=== PATIENT | female | born 1965 | race Caucasian/White ===

== ENCOUNTER 2022-01-05 10:15 | Inpatient (IN) | payer MEDICARE, MEDICAID ==
[2021-12-30 12:58] LABS: CLARITY,URINE SLIGHTLY CLOUDY (Clear); COLOR,URINE YELLOW (Yellow); GLUCOSE, URINE NEGATIVE (Neg); KETONES,URINE NEGATIVE (Neg); LEUKOCYTE ESTERASE ,URINE NEGATIVE (Neg); NITRITES, URINE NEGATIVE (Neg); OCCULT BLOOD,URINE NEGATIVE (Neg); PROTEIN,URINE NEGATIVE (Neg)
[2021-12-30 13:04] LABS: BASOPHILS % (AUTO) 0.8 % (0-1); EOSINOPHILS # (AUTO) 0.3 X10'3 (0-0.9); EOSINOPHILS % (AUTO) 6.3 % (0-6); LYMPHOCYTES # (AUTO) 1.8 X10'3 (1.1-4.8); LYMPHOCYTES % (AUTO) 31.6 % (21-51); MEAN CORPUSCULAR HEMOGLOBIN 29.8 PG (27.0-31.0); MEAN CORPUSCULAR HGB CONC 33.5 g/dL (33.0-36.5); MEAN CORPUSCULAR VOLUME 88.8 FL (78-98); MEAN PLATELET VOLUME 7.7 FL (7.4-10.4); MONOCYTES # (AUTO) 0.4 X10'3 (0-0.9); MONOCYTES % (AUTO) 7.4 % (2-12); NEUTROPHILS % (AUTO) 53.9 % (42-75); PRE OP HEMOGLOBIN 15.4 g/dL (12.0-16.0); PRE OP PLATELET COUNT 295 X10'3 (140-440); RED BLOOD COUNT 5.18 X10'6 (4.20-5.60); RED CELL DISTRIBUTION WIDTH 13.6 % (11.5-14.5)
[2021-12-30 13:14] LABS: UA COLLECTION TYPE CLN CATCH MIDSTREAM
[2021-12-30 13:15] LABS: HYALINE CASTS 0-3 /LPF (NEGATIVE); MUCUS STRANDS MODERATE /LPF (Neg); SQUAMOUS EPITHELIAL CELL,UR MANY /LPF (FEW)
[2021-12-30 13:16] LABS: WBC,URINE 0-4 /HPF (0-4)
[2021-12-30 13:18] LABS: BACTERIA,URINE 1+ /HPF (Neg)
[2021-12-30 13:19] LABS: RBC,URINE 0-2 /HPF (0-2)
[2021-12-30 13:25] LABS: ALBUMIN 3.9 G/DL (3.4-5.0); ALBUMIN/GLOBULIN RATIO 1.1 (1.1-1.5); ALKALINE PHOSPHATASE 99 IU/L (46-116); BLOOD UREA NITROGEN 10 MG/DL (7-18); CALCIUM 9.7 MG/DL (8.5-10.1); CHLORIDE 108 MMOL/L (99-107); CREATININE 0.77 MG/DL (0.40-0.90); PRE OP ALT 22 U/L (30-65); PRE OP ANION GAP 11 (8-16); PRE OP AST 11 U/L (10-37); PRE OP BILIRUB, TOTAL 0.4 MG/DL (0.0-1.0); PRE OP GLUCOSE 88 MG/DL (70-104); PRE OP POTASSIUM 4.6 MMOL/L (3.4-5.1); PRE OP SODIUM 143 MMOL/L (135-145); TOTAL CARBON DIOXIDE 24.2 MMOL/L (24-32); TOTAL PROTEIN 7.3 G/DL (6.4-8.2); eGFR 78 ML/MIN
[2022-01-05] VITALS (35 sets, daily range): BP systolic 100–188; BP diastolic 60–94
[~2022-01-05] VITALS: Ht 165.1 cm; Wt 110.0 kg
[~2022-01-05 10:15] MED LIST: FLUO-1 PO; PREG100C55 PO; ZOLP5TAB2 PO; cefazolin/dext.iso 2gm/50ml IV ONE; famotidine 20mg tablet PO ONE
[2022-01-05] MEDS: ringers solution, lacted 1,000 ML IV SCH (10:49)
[2022-01-05] MEDS ORDERED: BUPIVAcaine 0.5% inj/PF 30 ML ONE (12:03)
[2022-01-05] MEDS ORDERED: hydrALAZINE 20mg/ml inj. IV ONE (12:25)
[2022-01-05] MEDS ORDERED: sevoflurane 250ml liquid IH ONE (12:25)
[2022-01-05] MEDS ORDERED: ondansetron/PF 4mg/2ml inj ONE (12:25)
[2022-01-05] MEDS ORDERED: dexamethasone sod phosphate 10mg/ml inj ONE (12:25)
[2022-01-05] MEDS ORDERED: midazolam 1 mg/ML 2ml injection ONE (12:35)
[2022-01-05] MEDS ORDERED: fentaNYL /PF 50mcg/ml 5ml ampule ONE (12:36)
[2022-01-05] MEDS ORDERED: rocuronium 10mg/ml inj IV ONE ×2 (12:38→14:26)
[2022-01-05] MEDS ORDERED: propofol inj 20 ML IV ONE (12:40)
[2022-01-05] MEDS ORDERED: BUPIVAcaine 0.5% inj/PF 30 ml vial IJ ONE (13:16)
[2022-01-05] MEDS ORDERED: morphine 4 MG/ML inj SYRINge ONE (14:25)
--- NOTE | 2022-01-05 14:46 | NUR ---
Received from OR via gurney , accompanied by AnesthesiologistDr Trip and report given by Anesthesiolgist and OR nurse. pt is awake and appropriate, bp is high, orders received for labetolol. O2 via facvemask at 10 liters, pt is moving all extreminities, 5 bandaids with no drainage noted for dressings, abd binder in place, loosen by anesthesia . mild wheezing also noted, pt complains of severe pain and nausea
[2022-01-05] MEDS: labetalol 20mg/4ml (5mg/ml) syringe IV PRN ×2 (14:54→15:08)
[2022-01-05] MEDS ORDERED: morphine 2 MG/ML inj. syringe IV PRN (14:55)
[2022-01-05] MEDS ORDERED: proCHLORperazine 10 MG/2 ml inj IV PRN (14:55)
[2022-01-05] MEDS ORDERED: morphine 4 MG/ML inj SYRINge IV PRN (14:55)
[2022-01-05] MEDS ORDERED: ringers solution, lacted 1,000 ML IV SCH (14:55)
[2022-01-05] MEDS ORDERED: meperidine/PF 25mg/ml syringe IV PRN ×3 (14:55)
[2022-01-05] MEDS ORDERED: ondansetron/PF 4mg/2ml inj IV PRN (14:55)
[2022-01-05] MEDS ORDERED: albuterol 2.5 MG/3 ML nebule NEB ONE (15:10)
[2022-01-05] MEDS ORDERED: normal saline 500ml IV soln 1,000 ML IV ONE (16:00)
[2022-01-05] MEDS ORDERED: zolpidem 5mg tablet PO PRN (16:35)
[2022-01-05] MEDS ORDERED: ketorolac trometh. 30mg/ml inj. IV ONE (17:20)
[2022-01-05] MEDS ORDERED: albuterol 2.5 MG/3 ML nebule NEB PRN (17:20)
--- NOTE | 2022-01-05 17:33 | NUR ---
spoke to pts , awaiting bed placement. i will notify him when she is assigned a bed
--- NOTE | 2022-01-05 18:09 | NUR ---
report given to Shasta ANNE, awaiting bed placement, pt given is and shown how to use it. pt was able to pull 800, before coming short of breath, will encourage hourly
--- NOTE | 2022-01-05 19:00 | NUR ---
Report called to receiving nurse. Transferred via [facility] WITH Belongings . Special Issues communicated to receiving nurse.PATIENT PASSIVELY TRANSFERED TO BED VIA 3 PERSON ASSIST. VSS. DAYANA PRESNET TO ACCEPT CARE OF PATIENT. Addendum: 01/05/22 at 2017 by Alberto Jones RN, RN Amended: Links added.
[2022-01-05] MEDS: pregabalin 75mg capsule PO SCH (20:21)
[2022-01-05] MEDS: pregabalin 25mg capsule PO SCH (20:21)
[2022-01-05] MEDS ORDERED: naloxone 0.4 mg/ml inj IV PRN (21:30)
[2022-01-05] MEDS ORDERED: CADD PCA waste documentation MC PRN (21:30)
[2022-01-05] MEDS: HYDROmorph./NS 0.2 mg/ml CADD 100 ML IV SCH ×2 (22:50→23:00)
[2022-01-06] VITALS (22 sets, daily range): BP systolic 98–138; BP diastolic 59–78
[2022-01-06] MEDS: HYDROmorph./NS 0.2 mg/ml CADD 100 ML IV SCH ×13 (01:00→23:00)
[2022-01-06] MEDS ORDERED: LIDOcaine 2% 10ml TOPICAL JELLY (Urojet) TP ONE ×2 (04:05→04:50)
--- NOTE | 2022-01-06 04:16 | NUR ---
Patient walked to bathroom on 6L of oxygen, voided 200ml. Once patient was settled back into bed saturations were checked and saturations were 83% on 6L, HR 111. Non rebreather at 15L was placed, sustaining at 90%. Dr Peña was notified orders received for Type and cross, CBC, CMP, C-Xray, Respiratory eval and treat, place marcano. is requesting for transfer to ICU.
--- NOTE | 2022-01-06 04:37 | NUR ---
I have received report from Duglas, barrel raiser and had the opportunity to ask questions. RM is ready for PT arrival.
--- NOTE | 2022-01-06 04:44 | NUR ---
Gave report to ACCOUNTING OFFICE MANAGER, will transport patient
[2022-01-06] MEDS ORDERED: magnesium hydroxide 30ml (MOM) UD suspension PO PRN (04:50)
[2022-01-06] MEDS ORDERED: morphine 4 MG/ML inj SYRINge IV PRN (04:50)
[2022-01-06] MEDS ORDERED: acetaminophen 325mg tablet PO PRN ×2 (04:50)
[2022-01-06 04:51] LABS: BASOPHILS % (AUTO) 0.4 % (0-1); EOSINOPHILS % (AUTO) 0.1 % (0-6); HEMATOCRIT 45.2 % (35.0-45.0); HEMOGLOBIN 15.2 g/dl (12.0-16.0); LYMPHOCYTES # (AUTO) 0.7 X10'3 (1.1-4.8); LYMPHOCYTES % (AUTO) 7.7 % (21-51); MEAN CORPUSCULAR HGB CONC 33.6 g/dL (33.0-36.5); MEAN CORPUSCULAR VOLUME 89.1 FL (78-98); MEAN PLATELET VOLUME 7.1 FL (7.4-10.4); MONOCYTES # (AUTO) 0.7 X10'3 (0-0.9); NEUTROPHILS # (AUTO) 7.7 X10'3 (1.8-7.7); NEUTROPHILS % (AUTO) 83.8 % (42-75); PLATELET COUNT 295 X10'3 (140-440); RED BLOOD COUNT 5.07 X10'6 (4.20-5.60); RED CELL DISTRIBUTION WIDTH 13.9 % (11.5-14.5); WHITE BLOOD COUNT 9.2 X10'3 (4.5-11.0)
[2022-01-06] MEDS ORDERED: ipratropium 0.5 MG/2.5ML nebule IH ONE (04:55)
[2022-01-06] MEDS ORDERED: albuterol 2.5 MG/3 ML nebule NEB PRN (04:55)
[2022-01-06 05:01] LABS: APTT 25 SECONDS (22-32)
--- NOTE | 2022-01-06 05:24 | NUR ---
Patient transferred to ICU, with belongings. aware of transfer
--- NOTE | 2022-01-06 05:25 | NUR ---
0500 16f marcano placed using sterile technique clear yellow urine obtained
--- NOTE | 2022-01-06 05:29 | NUR ---
PT arrived to via hospital bed and transferred to ICU bed via slideboard. PT placed on bedside monitor. HR in low to mid hundreds, BP currently is 109/67, RR is 18 and PT sat is 91-94% on NRB. RT is at bedside about to administer breathing treatment. Lungs sounds are wheezy bilaterally both inspiratory and expiratory. PT is awake and answering questions appropriately. Hicks in place draining light oswald urine to gravity. Bed is locked and low. Call light is within reach. Will continue to monitor.
[2022-01-06 06:09] LABS: ABG BASE EXCESS -1.1 mmol/L (-2.0-2.0); ABG HCO3 24.8 mmol/L (22.0-26.0); ABG OXYGEN SATURATION 94.1 % (94-97); ABG PCO2 (T) 46.5 mmHg (32.0-45.0); ABG PO2 (T) 73.2 mmHg (75.0-100.0); ALLEN'S TEST POSITIVE; FCOHb 0.7 % (0.0-3.9); FLOW 15 L/min; FMetHb 0.2 % (0.0-1.5); FO2Hb 93.3 % (94-97); PATIENT TEMPERATURE 37.5; TOTAL HEMOGLOBIN 15.5 G/dl (12.0-16.0)
[2022-01-06 06:14] LABS: ALANINE AMINOTRANSFERASE 21 U/L (12-78); ALBUMIN 3.7 G/DL (3.4-5.0); ALBUMIN/GLOBULIN RATIO 1.3 (1.1-1.5); ALKALINE PHOSPHATASE 105 IU/L (46-116); ANION GAP 8 (8-16); ASPARTATE AMINO TRANSFERASE 14 U/L (10-37); BILIRUBIN,TOTAL 0.7 MG/DL (0.1-1.0); BLOOD UREA NITROGEN 15 MG/DL (7-18); BUN/CREATININE RATIO 15.5 (6.6-38.0); CALCIUM 9.6 MG/DL (8.5-10.1); CHLORIDE 106 MMOL/L (99-107); CREATININE 0.97 MG/DL (0.40-0.90); GLUCOSE 139 MG/DL (70-104); POTASSIUM 4.6 MMOL/L (3.5-5.1); SODIUM 138 MMOL/L (135-145); TOTAL CARBON DIOXIDE 23.7 MMOL/L (24-32); TOTAL PROTEIN 6.6 G/DL (6.4-8.2); eGFR 60 ML/MIN
--- NOTE | 2022-01-06 06:18 | NUR ---
Problems reprioritized. Patient report given, questions answered & plan of care reviewed with Gilda ANNE.
[2022-01-06] MEDS: ipratropium/albuterol 3ml nebule NEB SCH ×5 (07:42→23:00)
[2022-01-06] MEDS: FLUoxetine 20mg capsule PO SCH (08:27)
[2022-01-06] MEDS: pregabalin 25mg capsule PO SCH ×3 (08:27→20:19)
[2022-01-06] MEDS: pregabalin 75mg capsule PO SCH ×3 (08:27→20:19)
--- NOTE | 2022-01-06 08:34 | NUR ---
pt awake and oriented. nrb removed and pt placed on 12l hfnc. pt desats with coughing. has a moist cough
[2022-01-06] MEDS ORDERED: LIDOcaine 1% W/epiNEPHrine 1:100,000 20ml vial ONE (08:46)
[2022-01-06] MEDS: K and/or MAG REPLACEMENT MC SCH (08:48)
--- NOTE | 2022-01-06 11:52 | NUR ---
Received from OR via surgical bed, accompanied by Anesthesiologist and report given by Anesthesiolgist. MICHELLE MALDONADO MD medicating at bedside. Hicks catheter draining clear yellow urine, lap sites x3, 6 bandids . nasal cannula to 12L sats 100%, dilaudid CADD pump in place. Addendum: 01/07/22 at 0639 by Allie Lim RN WRONG ENTRY PATIENT RECEIVED FROM ICU via surgical bed, accompanied by ANGELICA ANNE and report given by RN. MICHELLE MALDONADO MD medicating at bedside. Hicks catheter draining clear yellow urine, lap sites x3, 6 bandids . nasal cannula to 12L sats 100%, dilaudid CADD pump in place.
--- NOTE | 2022-01-06 13:14 | NUR ---
Patient supposed to have a CT chest before surgery called place to DR Peña order received to D/C CT.
--- NOTE | 2022-01-06 17:07 | NUR ---
Patient refused skin assessment stated " i can't turn and i am in pain. charge Nurse made aware. will pass it to the next shift
--- NOTE | 2022-01-06 19:12 | NUR ---
Patient in room [facility]. I have received report from DAYANA Kelley and had the opportunity to ask questions and assume patient care.
--- NOTE | 2022-01-06 19:30 | NUR ---
Patient in room [facility]. I have received report from DAYANA Kelley and had the opportunity to ask questions and assume patient care.
[2022-01-06] MEDS: ringers solution, lacted 1,000 ML IV SCH (23:08)
[2022-01-07 00:21] VITALS: BP 111/67
[2022-01-07] MEDS: HYDROmorph./NS 0.2 mg/ml CADD 100 ML IV SCH ×12 (01:00→23:00)
[2022-01-07 01:29] VITALS: BP 151/79
--- NOTE | 2022-01-07 01:32 | NUR ---
Patient is on 7L high flow and Non rebreather (15)had to be added due to desaturation during a coughing fit. Addendum: 01/07/22 at 0311 by Ja Harrison RN Amended: Links added. Addendum: 01/07/22 at 0349 by Ja Harrison RN Respiratory was pagecarlos manuel
[2022-01-07 01:36] VITALS: BP 151/79
--- NOTE | 2022-01-07 03:48 | NUR ---
patient resting comfortably, oxygen is 95% on high flow 12 and Non rebreather 15%, heart rate is 88% Respiratory has been notified
[2022-01-07] MEDS: ipratropium/albuterol 3ml nebule NEB SCH ×6 (04:54→23:06)
[2022-01-07 06:18] LABS: BASOPHILS % (AUTO) 0.3 % (0-1); EOSINOPHILS # (AUTO) 0.1 X10'3 (0-0.9); EOSINOPHILS % (AUTO) 1.1 % (0-6); HEMATOCRIT 40.5 % (35.0-45.0); HEMOGLOBIN 13.7 g/dl (12.0-16.0); LYMPHOCYTES # (AUTO) 0.8 X10'3 (1.1-4.8); LYMPHOCYTES % (AUTO) 8.4 % (21-51); MEAN CORPUSCULAR HEMOGLOBIN 29.8 PG (27.0-31.0); MEAN CORPUSCULAR HGB CONC 33.8 g/dL (33.0-36.5); MEAN CORPUSCULAR VOLUME 88.3 FL (78-98); MEAN PLATELET VOLUME 7.1 FL (7.4-10.4); MONOCYTES # (AUTO) 0.8 X10'3 (0-0.9); MONOCYTES % (AUTO) 8.3 % (2-12); NEUTROPHILS % (AUTO) 81.9 % (42-75); PLATELET COUNT 252 X10'3 (140-440); RED BLOOD COUNT 4.58 X10'6 (4.20-5.60); RED CELL DISTRIBUTION WIDTH 13.4 % (11.5-14.5); WHITE BLOOD COUNT 9.8 X10'3 (4.5-11.0)
--- NOTE | 2022-01-07 06:23 | NUR ---
Problems reprioritized. Patient report given, questions answered & plan of care reviewed with DAYNAA Kelley.
[2022-01-07 06:26] LABS: ALBUMIN 3.1 G/DL (3.4-5.0); ANION GAP 6 (8-16); BLOOD UREA NITROGEN 9 MG/DL (7-18); BUN/CREATININE RATIO 14.8 (6.6-38.0); CALCIUM 8.9 MG/DL (8.5-10.1); CHLORIDE 106 MMOL/L (99-107); CREATININE 0.61 MG/DL (0.40-0.90); GLUCOSE 122 MG/DL (70-104); MAGNESIUM 1.7 MG/DL (1.5-2.4); PHOSPHORUS 2.1 MG/DL (2.3-4.5); POTASSIUM 4.4 MMOL/L (3.5-5.1); SODIUM 140 MMOL/L (135-145); TOTAL CARBON DIOXIDE 28.3 MMOL/L (24-32); eGFR > 90 ML/MIN
--- NOTE | 2022-01-07 06:31 | NUR ---
Patient in room [facility]A. I have received report from MAYLIN ANNE and had the opportunity to ask questions and assume patient care.
--- NOTE | 2022-01-07 06:32 | NUR ---
Report given to DAYANA Heredia I agree with Morena's documentation, assessments,
[2022-01-07] MEDS: pregabalin 25mg capsule PO SCH ×3 (07:45→21:13)
[2022-01-07] MEDS: pregabalin 75mg capsule PO SCH ×3 (07:45→21:13)
[2022-01-07] MEDS: FLUoxetine 20mg capsule PO SCH (07:45)
[2022-01-07] MEDS: K and/or MAG REPLACEMENT MC SCH (08:00)
[2022-01-07] MEDS: ondansetron/PF 4mg/2ml inj IV PRN (08:20)
[2022-01-07 10:15] VITALS: BP 128/73
[2022-01-07] MEDS ORDERED: methylPREDNISolone sod succ 125mg/2ml vial IV ONE (10:35)
[2022-01-07] MEDS ORDERED: albuterol 2.5 MG/3 ML nebule NEB PRN (11:05)
[2022-01-07 11:50] VITALS: BP 114/68
[2022-01-07] MEDS: methylPREDNISolone sod succ 125mg/2ml vial IV SCH ×2 (13:11→21:07)
[2022-01-07] MEDS: normal saline 1000ml 1,000 ML IV SCH (17:45)
--- NOTE | 2022-01-07 17:58 | NUR ---
patient resting comfortably, oxygen is 94% on high flow 12L. no sign of distress noted
--- NOTE | 2022-01-07 19:10 | NUR ---
Problems reprioritized. Patient report given, questions answered & plan of care reviewed with CIRO ANNE.
[2022-01-07 20:00] VITALS: BP 120/71
[2022-01-07] MEDS: enoxaparin 30mg/0.3ml syringe SUBCUT SCH (21:14)
[2022-01-07] MEDS: enoxaparin 80mg/0.8ml syringe SUBCUT SCH (21:14)
[2022-01-08] VITALS: BP 120/75
[2022-01-08] MEDS: HYDROmorph./NS 0.2 mg/ml CADD 100 ML IV SCH ×10 (01:00→19:00)
--- NOTE | 2022-01-08 02:23 | NUR ---
01/07/22 LATE ENTRY 1820 CALLED TO PTS ROOM DURING SHIFT CHANGE REPORT . PTS O2 SAT WAS 86% ON 15L HIGH FLOW NC. PT ENCOURAGED TO COUGH AND PERFORM DEEP BREATHING EXERCISES. RT WAS NOTIFIED WELL CHARGE NURSE WESLEY . PTS O2 SAT CAME UP TO 90-92 % .
--- NOTE | 2022-01-08 02:29 | NUR ---
WESLEY SALES COMPENSATION ANALYST NURSE RECOMMENDED THAT SHASHA BE LEFT IN DUE TO PTS LOW 02SAT WITH EXERTION. . WESLEY STATED TO BE FOLLOWED UP WITH DR TURCIOS
[2022-01-08] MEDS: methylPREDNISolone sod succ 125mg/2ml vial IV SCH ×4 (02:37→19:52)
[2022-01-08 04:00] VITALS: BP 123/77
[2022-01-08] MEDS: ipratropium/albuterol 3ml nebule NEB SCH ×6 (04:41→23:01)
--- NOTE | 2022-01-08 04:42 | NUR ---
0400 Addendum: 01/08/22 at 0619 by Horace Lim RN 0430 NOTIFIED BY RESOURCE NURSE THAT DURING MY BREAK PT O2 SAT DROPPED TO 79% ON 15L HIGH FLOW NC. WAS TOLD 100% NRB MASK WAS PLACED ON PT AND RT WAS CALLED. UPON MY RETURN PT WAS ON 15L MASK AND 02 SAT 90-91% . ENCOURAGED PT TO DO COUGHING AND DEEP BREATHING EXERCISES. PT HAS A STRONG COUGH AND IS ABLE TO COUGH UP SECRETIONS BUT DESATS WHEN COUGHING
--- NOTE | 2022-01-08 06:21 | NUR ---
0400 PULLIAM CATHETER WAS DCD O2 SAT 91-92% ON 15L MASK
--- NOTE | 2022-01-08 06:22 | NUR ---
Patient in room [facility]A. I have received report from CIRO ANNE and had the opportunity to ask questions and assume patient care.
[2022-01-08] MEDS: K and/or MAG REPLACEMENT MC SCH (08:00)
[2022-01-08] MEDS: FLUoxetine 20mg capsule PO SCH (08:04)
[2022-01-08] MEDS: pregabalin 25mg capsule PO SCH ×3 (08:04→20:00)
[2022-01-08] MEDS: pregabalin 75mg capsule PO SCH ×3 (08:04→20:00)
[2022-01-08] MEDS: enoxaparin 80mg/0.8ml syringe SUBCUT SCH ×2 (08:05→19:55)
[2022-01-08] MEDS: enoxaparin 30mg/0.3ml syringe SUBCUT SCH ×2 (08:06→19:56)
[2022-01-08] MEDS: ondansetron/PF 4mg/2ml inj IV PRN (08:43)
--- NOTE | 2022-01-08 08:50 | NUR ---
Patient's on high flow @15L, o2 dropped to 86 NON BREATHER @ 5L. MD notified.
[2022-01-08] MEDS ORDERED: iohexol 350MG/ML 100ml bottle IV ONE (11:20)
--- NOTE | 2022-01-08 12:01 | NUR ---
order received for CT chest with contrast. CT DONE. NO distress noted at this time.
--- NOTE | 2022-01-08 13:50 | NUR ---
patient starts on ABT. No adverse reaction noted or reported. T98.2, HR89, R20,O2 94,@ 15L, B/P137/77.
[2022-01-08] MEDS: VANCOMYCIN 1GM/200ML IVPB 200 ML IV SCH (15:17)
[2022-01-08] MEDS: piperacillin/tazo 3.375gm/50ml 50 ML IV SCH ×3 (15:33→23:55)
--- NOTE | 2022-01-08 17:39 | NUR ---
patient resting comfortably, oxygen is 95% on high flow 15L. no sign of distress noted
--- NOTE | 2022-01-08 18:27 | NUR ---
Problems reprioritized. Patient report given, questions answered & plan of care reviewed with CIRO ANNE
[2022-01-08] MEDS ORDERED: mag hydrox/Alum hydrox/simeth 30ml oral suspension PO PRN (19:20)
[2022-01-08] MEDS: docusate sod 100mg capsule PO SCH (19:55)
[2022-01-08 19:57] VITALS: BP 130/71
[2022-01-08] MEDS ORDERED: HYDROcodone/acetaminophen 5mg/325mg tablet PO PRN (20:30)
[2022-01-08] MEDS: magnesium hydroxide 30ml (MOM) UD suspension PO SCH (21:28)
[2022-01-09] MEDS ORDERED: methylPREDNISolone sod succ 125mg/2ml vial IV SCH
[2022-01-09 00:27] VITALS: BP 128/84
[2022-01-09] MEDS ORDERED: CADD PCA waste documentation MC PRN (00:40)
[2022-01-09] MEDS: ipratropium/albuterol 3ml nebule NEB SCH ×6 (02:41→23:26)
[2022-01-09] MEDS: VANCOMYCIN 1GM/200ML IVPB 200 ML IV SCH ×2 (03:17→14:26)
[2022-01-09] MEDS: methylPREDNISolone sod succ 125mg/2ml vial IV SCH ×3 (04:46→19:32)
[2022-01-09] MEDS: morphine 2 MG/ML inj. syringe IV PRN ×4 (05:33→19:33)
--- NOTE | 2022-01-09 06:18 | NUR ---
report to kristin mendoza
--- NOTE | 2022-01-09 06:30 | NUR ---
Patient in room [facility]. I have received report from Severino ANNE and had the opportunity to ask questions and assume patient care.
[2022-01-09 06:33] LABS: BASOPHILS % (AUTO) 0.1 % (0-1); EOSINOPHILS % (AUTO) 0 % (0-6); HEMATOCRIT 39.7 % (35.0-45.0); HEMOGLOBIN 13.5 g/dl (12.0-16.0); LYMPHOCYTES # (AUTO) 0.9 X10'3 (1.1-4.8); LYMPHOCYTES % (AUTO) 7.7 % (21-51); MEAN CORPUSCULAR HGB CONC 33.9 g/dL (33.0-36.5); MEAN CORPUSCULAR VOLUME 88.5 FL (78-98); MEAN PLATELET VOLUME 7.6 FL (7.4-10.4); MONOCYTES # (AUTO) 0.9 X10'3 (0-0.9); NEUTROPHILS # (AUTO) 9.6 X10'3 (1.8-7.7); NEUTROPHILS % (AUTO) 84.2 % (42-75); PLATELET COUNT 291 X10'3 (140-440); RED BLOOD COUNT 4.49 X10'6 (4.20-5.60); RED CELL DISTRIBUTION WIDTH 13.5 % (11.5-14.5); WHITE BLOOD COUNT 11.4 X10'3 (4.5-11.0)
[2022-01-09 06:36] LABS: ALANINE AMINOTRANSFERASE 19 U/L (12-78); ALKALINE PHOSPHATASE 78 IU/L (46-116); ANION GAP 9 (8-16); ASPARTATE AMINO TRANSFERASE 13 U/L (10-37); BILIRUBIN,TOTAL 0.5 MG/DL (0.1-1.0); BLOOD UREA NITROGEN 19 MG/DL (7-18); BUN/CREATININE RATIO 27.1 (6.6-38.0); C-REACTIVE PROTEIN 1.85 MG/DL (0.0-0.5); CALCIUM 9.6 MG/DL (8.5-10.1); CHLORIDE 103 MMOL/L (99-107); GLUCOSE 121 MG/DL (70-104); MAGNESIUM 2.4 MG/DL (1.5-2.4); PHOSPHORUS 2.8 MG/DL (2.3-4.5); POTASSIUM 4.5 MMOL/L (3.5-5.1); SODIUM 143 MMOL/L (135-145); TOTAL CARBON DIOXIDE 30.8 MMOL/L (24-32); TOTAL PROTEIN 6.1 G/DL (6.4-8.2); eGFR 87 ML/MIN
--- NOTE | 2022-01-09 06:37 | NUR ---
Patient in room [facility]. I have received report from Horace ANNE and had the opportunity to ask questions and assume patient care.
[2022-01-09 07:00] VITALS: BP 126/78
[2022-01-09] MEDS: magnesium hydroxide 30ml (MOM) UD suspension PO SCH ×2 (08:22→20:00)
[2022-01-09] MEDS: FLUoxetine 20mg capsule PO SCH (08:23)
[2022-01-09] MEDS: pregabalin 75mg capsule PO SCH ×3 (08:23→23:34)
[2022-01-09] MEDS: pregabalin 25mg capsule PO SCH ×3 (08:23→23:34)
[2022-01-09] MEDS: docusate sod 100mg capsule PO SCH ×2 (08:23→19:31)
[2022-01-09] MEDS: enoxaparin 60mg/0.6ml syringe SUBCUT SCH (08:25)
[2022-01-09] MEDS: piperacillin/tazo 3.375gm/50ml 50 ML IV SCH ×3 (08:25→23:40)
[2022-01-09] MEDS: ondansetron/PF 4mg/2ml inj IV PRN (08:33)
[2022-01-09] MEDS ORDERED: metoclopramide 5 mg/ml inj IV PRN (10:50)
[2022-01-09 12:00] VITALS: BP 122/79
[2022-01-09 12:59] LABS: ABG BASE EXCESS 7.5 mmol/L (-2.0-2.0); ABG HCO3 31.1 mmol/L (22.0-26.0); ABG OXYGEN SATURATION 93.5 % (94-97); ABG PCO2 (T) 39.8 mmHg (32.0-45.0); ALLEN'S TEST POSITIVE; FCOHb 0.1 % (0.0-3.9); FLOW 15 L/min; FMetHb 0.2 % (0.0-1.5); FO2Hb 93.2 % (94-97); PATIENT TEMPERATURE 36.8; TOTAL HEMOGLOBIN 15.1 G/dl (12.0-16.0)
[2022-01-09] MEDS: normal saline 1000ml 1,000 ML IV SCH (17:15)
--- NOTE | 2022-01-09 18:17 | NUR ---
Problems reprioritized. Patient report given, questions answered & plan of care reviewed with Beto ANNE.
--- NOTE | 2022-01-09 18:21 | NUR ---
Student documentation: I have reviewed and agree with all interventions, assessments performed and documented by Michael ANNE.
[2022-01-09 18:50] VITALS: BP 127/78
[2022-01-09] MEDS: metoclopramide 5 mg/ml inj IV SCH (19:32)
[2022-01-10] MEDS ORDERED: VANCOMYCIN LEVEL IV ONE (01:30)
[2022-01-10] MEDS: metoclopramide 5 mg/ml inj IV SCH ×4 (02:40→19:28)
[2022-01-10] MEDS: VANCOMYCIN 1GM/200ML IVPB 200 ML IV SCH (02:41)
[2022-01-10] MEDS: ipratropium/albuterol 3ml nebule NEB SCH ×6 (02:56→22:49)
[2022-01-10 03:53] LABS: ANION GAP 7 (8-16); BILIRUBIN,TOTAL 0.6 MG/DL (0.1-1.0); BLOOD UREA NITROGEN 18 MG/DL (7-18); BUN/CREATININE RATIO 28.6 (6.6-38.0); CALCIUM 9.4 MG/DL (8.5-10.1); CHLORIDE 104 MMOL/L (99-107); CREATININE 0.63 MG/DL (0.40-0.90); GLUCOSE 140 MG/DL (70-104); MAGNESIUM 2.4 MG/DL (1.5-2.4); PHOSPHORUS 3.2 MG/DL (2.3-4.5); POTASSIUM 4.2 MMOL/L (3.5-5.1); SODIUM 143 MMOL/L (135-145); TOTAL CARBON DIOXIDE 32.2 MMOL/L (24-32); eGFR > 90 ML/MIN
[2022-01-10 03:54] LABS: ALANINE AMINOTRANSFERASE 24 U/L (12-78); ALKALINE PHOSPHATASE 74 IU/L (46-116); ASPARTATE AMINO TRANSFERASE 13 U/L (10-37)
[2022-01-10] MEDS: methylPREDNISolone sod succ 125mg/2ml vial IV SCH ×3 (05:17→19:28)
[2022-01-10] MEDS: morphine 2 MG/ML inj. syringe IV PRN ×4 (05:31→20:14)
[2022-01-10 05:55] LABS: BASOPHILS % (AUTO) 0.2 % (0-1); EOSINOPHILS % (AUTO) 0.1 % (0-6); HEMATOCRIT 41.2 % (35.0-45.0); HEMOGLOBIN 13.9 g/dl (12.0-16.0); LYMPHOCYTES % (AUTO) 10.8 % (21-51); MEAN CORPUSCULAR HGB CONC 33.8 g/dL (33.0-36.5); MEAN CORPUSCULAR VOLUME 88.7 FL (78-98); MEAN PLATELET VOLUME 7.3 FL (7.4-10.4); MONOCYTES # (AUTO) 0.9 X10'3 (0-0.9); MONOCYTES % (AUTO) 9.8 % (2-12); NEUTROPHILS # (AUTO) 7.1 X10'3 (1.8-7.7); NEUTROPHILS % (AUTO) 79.1 % (42-75); PLATELET COUNT 286 X10'3 (140-440); RED BLOOD COUNT 4.65 X10'6 (4.20-5.60); RED CELL DISTRIBUTION WIDTH 13.3 % (11.5-14.5)
--- NOTE | 2022-01-10 06:21 | NUR ---
Patient in room [facility]. I have received report from Beto ANNE and had the opportunity to ask questions and assume patient care.
--- NOTE | 2022-01-10 06:26 | NUR ---
Problems reprioritized. Patient report given, questions answered & plan of care reviewed with KELVIN. Addendum: 01/10/22 at 0626 by Michael Redmond RN Amended: Links added.
[2022-01-10] MEDS: piperacillin/tazo 3.375gm/50ml 50 ML IV SCH ×3 (07:59→23:56)
[2022-01-10 08:00] VITALS: BP 111/69
[2022-01-10] MEDS: enoxaparin 60mg/0.6ml syringe SUBCUT SCH (08:00)
[2022-01-10] MEDS: magnesium hydroxide 30ml (MOM) UD suspension PO SCH ×2 (08:00→19:23)
[2022-01-10] MEDS: docusate sod 100mg capsule PO SCH ×2 (08:00→19:28)
[2022-01-10] MEDS: FLUoxetine 20mg capsule PO SCH (08:00)
[2022-01-10] MEDS: pregabalin 75mg capsule PO SCH ×3 (08:01→20:15)
[2022-01-10] MEDS: pregabalin 25mg capsule PO SCH ×3 (08:01→20:14)
[2022-01-10 11:43] VITALS: BP 119/70
[2022-01-10] MEDS: VANCOmycin 1250MG/NS 250ml Bag 250 ML IV SCH ×2 (12:26→20:15)
--- NOTE | 2022-01-10 14:22 | NUR ---
Initial: Pt s/p laparoscopic hernia repair 01/05 per EMR. Pt initially on Clear liquids w/ ~25% intake of meals, now on Full liquids starting today w/ 75% intake of first meal, not meeting nutritional needs at this time. Recommend continuing to advance to Regular diet as tolerated per MD discretion. First BM noted today w/ aggressive bowel care regimen. Will continue to follow closely. Recs: 1. Advance to Regular diet as tolerated 2. Monitor need for ONS 3. Bowel care per MD 4. Weekly wts Addendum: 01/10/22 at [address] Amended: Links added.
--- NOTE | 2022-01-10 18:09 | NUR ---
Problems reprioritized. Patient report given, questions answered & plan of care reviewed with christine mendoza.
--- NOTE | 2022-01-10 18:14 | NUR ---
Student documentation: I have reviewed and agree with all interventions, assessments performed and documented by Michael ANNE.
[2022-01-10 18:50] VITALS: BP 121/68
[2022-01-10 20:00] VITALS: BP 121/68
[2022-01-11] VITALS: BP 127/80
[2022-01-11] MEDS: metoclopramide 5 mg/ml inj IV SCH ×4 (01:29→19:34)
[2022-01-11] MEDS: morphine 2 MG/ML inj. syringe IV PRN ×2 (01:30→07:10)
[2022-01-11] MEDS: ipratropium/albuterol 3ml nebule NEB SCH ×6 (02:30→23:39)
[2022-01-11] MEDS: methylPREDNISolone sod succ 125mg/2ml vial IV SCH ×2 (05:01→19:33)
--- NOTE | 2022-01-11 06:21 | NUR ---
Problems reprioritized. Patient report given, questions answered & plan of care reviewed with WOO. Addendum: 01/11/22 at 0622 by Michael Redmond RN Amended: Links added.
[2022-01-11] MEDS: pregabalin 75mg capsule PO SCH ×3 (07:08→21:33)
[2022-01-11] MEDS: FLUoxetine 20mg capsule PO SCH (07:09)
[2022-01-11] MEDS: pregabalin 25mg capsule PO SCH ×3 (07:09→21:33)
[2022-01-11] MEDS: enoxaparin 60mg/0.6ml syringe SUBCUT SCH (07:10)
[2022-01-11 07:19] LABS: BASOPHILS % (AUTO) 0.2 % (0-1); EOSINOPHILS % (AUTO) 0.3 % (0-6); HEMOGLOBIN 14.6 g/dl (12.0-16.0); LYMPHOCYTES # (AUTO) 0.9 X10'3 (1.1-4.8); LYMPHOCYTES % (AUTO) 8.9 % (21-51); MEAN CORPUSCULAR HGB CONC 33.9 g/dL (33.0-36.5); MEAN CORPUSCULAR VOLUME 88.5 FL (78-98); MEAN PLATELET VOLUME 7.2 FL (7.4-10.4); MONOCYTES # (AUTO) 0.7 X10'3 (0-0.9); NEUTROPHILS % (AUTO) 83.6 % (42-75); PLATELET COUNT 304 X10'3 (140-440); RED BLOOD COUNT 4.86 X10'6 (4.20-5.60); RED CELL DISTRIBUTION WIDTH 13.5 % (11.5-14.5); WHITE BLOOD COUNT 9.5 X10'3 (4.5-11.0)
[2022-01-11] MEDS: magnesium hydroxide 30ml (MOM) UD suspension PO SCH ×2 (07:22→20:00)
[2022-01-11] MEDS: docusate sod 100mg capsule PO SCH ×2 (07:22→21:00)
[2022-01-11] MEDS: piperacillin/tazo 3.375gm/50ml 50 ML IV SCH ×2 (07:33→17:12)
[2022-01-11 07:44] LABS: ALANINE AMINOTRANSFERASE 39 U/L (12-78); ALBUMIN 3.2 G/DL (3.4-5.0); ALKALINE PHOSPHATASE 75 IU/L (46-116); ANION GAP 9 (8-16); ASPARTATE AMINO TRANSFERASE 15 U/L (10-37); BILIRUBIN,TOTAL 0.8 MG/DL (0.1-1.0); BLOOD UREA NITROGEN 17 MG/DL (7-18); BUN/CREATININE RATIO 22.7 (6.6-38.0); C-REACTIVE PROTEIN 0.34 MG/DL (0.0-0.5); CALCIUM 9.5 MG/DL (8.5-10.1); CHLORIDE 104 MMOL/L (99-107); CREATININE 0.75 MG/DL (0.40-0.90); GLUCOSE 125 MG/DL (70-104); MAGNESIUM 2.2 MG/DL (1.5-2.4); PHOSPHORUS 3.2 MG/DL (2.3-4.5); POTASSIUM 4.3 MMOL/L (3.5-5.1); SODIUM 143 MMOL/L (135-145); TOTAL CARBON DIOXIDE 29.6 MMOL/L (24-32); TOTAL PROTEIN 6.4 G/DL (6.4-8.2); eGFR 81 ML/MIN
[2022-01-11 07:51] VITALS: BP 121/82
[2022-01-11] MEDS ORDERED: WATER IV SCH (09:00)
[2022-01-11] MEDS ORDERED: VANCOMYCIN IV SCH (09:00)
[2022-01-11] MEDS ORDERED: DEXTROSE 5% IV SCH (09:00)
[2022-01-11] MEDS: VANCOmycin 1250MG/NS 250ml Bag 250 ML IV SCH (09:28)
[2022-01-11 12:01] VITALS: BP 123/70
[2022-01-11] MEDS ORDERED: HYDROcodone/acetaminophen 5mg/325mg tablet PO PRN (12:40)
[2022-01-11] MEDS: oxyCODONE/APAP 5-325mg tablet PO PRN ×2 (17:13→21:45)
[2022-01-11 18:00] VITALS: BP 131/68
[2022-01-11] MEDS ORDERED: VANCOMYCIN LEVEL IV ONE (20:30)
[2022-01-12] VITALS: BP 129/73
[2022-01-12] MEDS: piperacillin/tazo 3.375gm/50ml 50 ML IV SCH ×3 (00:54→18:03)
[2022-01-12] MEDS: metoclopramide 5 mg/ml inj IV SCH ×4 (01:32→20:00)
[2022-01-12] MEDS: oxyCODONE/APAP 5-325mg tablet PO PRN ×5 (01:49→20:32)
[2022-01-12 02:11] VITALS: BP 129/73
[2022-01-12] MEDS: ipratropium/albuterol 3ml nebule NEB SCH ×6 (02:49→23:10)
[2022-01-12] MEDS: VANCOmycin 1250MG/NS 250ml Bag 250 ML IV SCH (03:45)
[2022-01-12 06:09] LABS: BASOPHILS % (AUTO) 0.1 % (0-1); EOSINOPHILS % (AUTO) 0.1 % (0-6); HEMATOCRIT 39.7 % (35.0-45.0); HEMOGLOBIN 13.8 g/dl (12.0-16.0); LYMPHOCYTES # (AUTO) 0.8 X10'3 (1.1-4.8); LYMPHOCYTES % (AUTO) 9.7 % (21-51); MEAN CORPUSCULAR HEMOGLOBIN 30.3 PG (27.0-31.0); MEAN CORPUSCULAR HGB CONC 34.6 g/dL (33.0-36.5); MEAN CORPUSCULAR VOLUME 87.5 FL (78-98); MEAN PLATELET VOLUME 7.3 FL (7.4-10.4); MONOCYTES # (AUTO) 0.5 X10'3 (0-0.9); MONOCYTES % (AUTO) 5.6 % (2-12); NEUTROPHILS # (AUTO) 7.4 X10'3 (1.8-7.7); NEUTROPHILS % (AUTO) 84.5 % (42-75); PLATELET COUNT 279 X10'3 (140-440); RED BLOOD COUNT 4.54 X10'6 (4.20-5.60); RED CELL DISTRIBUTION WIDTH 13.5 % (11.5-14.5); WHITE BLOOD COUNT 8.7 X10'3 (4.5-11.0)
[2022-01-12 06:16] LABS: ANION GAP 9 (8-16); BLOOD UREA NITROGEN 17 MG/DL (7-18); BUN/CREATININE RATIO 20.7 (6.6-38.0); CALCIUM 9.2 MG/DL (8.5-10.1); CHLORIDE 104 MMOL/L (99-107); CREATININE 0.82 MG/DL (0.40-0.90); GLUCOSE 164 MG/DL (70-104); POTASSIUM 4.4 MMOL/L (3.5-5.1); SODIUM 143 MMOL/L (135-145); TOTAL CARBON DIOXIDE 30.1 MMOL/L (24-32); eGFR 73 ML/MIN
[2022-01-12 06:17] LABS: ALANINE AMINOTRANSFERASE 32 U/L (12-78); ALBUMIN 2.9 G/DL (3.4-5.0); ASPARTATE AMINO TRANSFERASE 11 U/L (10-37); BILIRUBIN,TOTAL 0.4 MG/DL (0.1-1.0); C-REACTIVE PROTEIN 0.22 MG/DL (0.0-0.5); PHOSPHORUS 4.1 MG/DL (2.3-4.5); TOTAL PROTEIN 5.7 G/DL (6.4-8.2)
--- NOTE | 2022-01-12 06:25 | NUR ---
Problems reprioritized. Patient report given, questions answered & plan of care reviewed with Magdalena.
[2022-01-12] MEDS: FLUoxetine 20mg capsule PO SCH (07:15)
[2022-01-12] MEDS: pregabalin 25mg capsule PO SCH ×3 (07:15→20:31)
[2022-01-12] MEDS: pregabalin 75mg capsule PO SCH ×3 (07:15→20:31)
[2022-01-12] MEDS: enoxaparin 60mg/0.6ml syringe SUBCUT SCH (07:19)
[2022-01-12] MEDS: methylPREDNISolone sod succ 125mg/2ml vial IV SCH ×2 (07:22→20:32)
[2022-01-12] MEDS: docusate sod 100mg capsule PO SCH ×2 (07:23→20:00)
[2022-01-12] MEDS: magnesium hydroxide 30ml (MOM) UD suspension PO SCH ×2 (08:00→20:00)
--- NOTE | 2022-01-12 09:46 | NUR ---
Reassessment: Diet has been advanced to regular and overall pt eating well documented with mostly 75% PO intake meeting estimated nutrient needs. LBM 01/10, documented with four BMs per I&O, with routine bowel care and prokinetic agent available though pt documented to be refusing at times. No nutrition intervention implemented at this time. Will continue to follow and make recommendations as appropriate. Recommendations: 1. Continue regular diet 2. Monitor need for ONS/additional protein 3. Bowel care per MD 4. Weekly scaled wts Addendum: 01/12/22 at [address] Amended: Links added.
[2022-01-12 11:00] VITALS: BP 149/97
--- NOTE | 2022-01-12 11:23 | NUR ---
Dr Peña rounded and determined pt was surgically ready for dc. Per JESSICA Weeks, we trialed pt on room air Pt was maintaining O2 saturation above 92% improving to 96% with cough & deep breathing. Pt lives past [place] without safe ride home. CM unable to obtain medical transport today.
[2022-01-12] MEDS ORDERED: VANCOMYCIN IV SCH ×4 (16:00)
[2022-01-12] MEDS ORDERED: WATER IV SCH ×4 (16:00)
[2022-01-12] MEDS ORDERED: DEXTROSE 5% IV SCH ×4 (16:00)
[2022-01-12] MEDS: VANCOMYCIN IV SCH (16:28)
[2022-01-12] MEDS: DEXTROSE 5% IV SCH (16:28)
[2022-01-12] MEDS: WATER IV SCH (16:28)
[2022-01-12 18:00] VITALS: BP 152/79
[2022-01-13] VITALS: BP 125/72
[2022-01-13] MEDS: piperacillin/tazo 3.375gm/50ml 50 ML IV SCH ×2 (00:51→08:20)
[2022-01-13] MEDS: oxyCODONE/APAP 5-325mg tablet PO PRN ×4 (00:52→13:36)
[2022-01-13] MEDS: metoclopramide 5 mg/ml inj IV SCH ×2 (02:00→08:00)
[2022-01-13] MEDS: ipratropium/albuterol 3ml nebule NEB SCH ×3 (03:08→11:55)
[2022-01-13] MEDS: VANCOMYCIN IV SCH (04:17)
[2022-01-13] MEDS: WATER IV SCH (04:17)
[2022-01-13] MEDS: DEXTROSE 5% IV SCH (04:17)
[2022-01-13 06:28] LABS: BASOPHILS % (AUTO) 0 % (0-1); EOSINOPHILS % (AUTO) 0.1 % (0-6); HEMATOCRIT 41.8 % (35.0-45.0); LYMPHOCYTES % (AUTO) 10.6 % (21-51); MEAN CORPUSCULAR HEMOGLOBIN 29.8 PG (27.0-31.0); MEAN CORPUSCULAR HGB CONC 33.5 g/dL (33.0-36.5); MEAN PLATELET VOLUME 7.8 FL (7.4-10.4); MONOCYTES # (AUTO) 0.7 X10'3 (0-0.9); MONOCYTES % (AUTO) 7.5 % (2-12); NEUTROPHILS # (AUTO) 7.5 X10'3 (1.8-7.7); NEUTROPHILS % (AUTO) 81.8 % (42-75); PLATELET COUNT 282 X10'3 (140-440); RED BLOOD COUNT 4.69 X10'6 (4.20-5.60); RED CELL DISTRIBUTION WIDTH 13.5 % (11.5-14.5); WHITE BLOOD COUNT 9.2 X10'3 (4.5-11.0)
[2022-01-13 06:39] LABS: ALANINE AMINOTRANSFERASE 27 U/L (12-78); ALBUMIN 3.1 G/DL (3.4-5.0); ALBUMIN/GLOBULIN RATIO 1.1 (1.1-1.5); ALKALINE PHOSPHATASE 68 IU/L (46-116); ANION GAP 10 (8-16); ASPARTATE AMINO TRANSFERASE 10 U/L (10-37); BILIRUBIN,TOTAL 0.4 MG/DL (0.1-1.0); BLOOD UREA NITROGEN 15 MG/DL (7-18); BUN/CREATININE RATIO 17.6 (6.6-38.0); C-REACTIVE PROTEIN 0.14 MG/DL (0.0-0.5); CALCIUM 9.3 MG/DL (8.5-10.1); CHLORIDE 106 MMOL/L (99-107); CREATININE 0.85 MG/DL (0.40-0.90); GLUCOSE 147 MG/DL (70-104); MAGNESIUM 2.1 MG/DL (1.5-2.4); PHOSPHORUS 4.1 MG/DL (2.3-4.5); POTASSIUM 4.7 MMOL/L (3.5-5.1); SODIUM 143 MMOL/L (135-145); TOTAL CARBON DIOXIDE 26.7 MMOL/L (24-32); TOTAL PROTEIN 5.8 G/DL (6.4-8.2); eGFR 70 ML/MIN
[2022-01-13] MEDS: docusate sod 100mg capsule PO SCH (08:00)
[2022-01-13] MEDS: magnesium hydroxide 30ml (MOM) UD suspension PO SCH (08:00)
[2022-01-13] MEDS: pregabalin 25mg capsule PO SCH ×2 (08:10→12:34)
[2022-01-13] MEDS: pregabalin 75mg capsule PO SCH ×2 (08:10→12:33)
[2022-01-13] MEDS: FLUoxetine 20mg capsule PO SCH (08:12)
[2022-01-13] MEDS: enoxaparin 60mg/0.6ml syringe SUBCUT SCH (08:15)
[2022-01-13] MEDS: methylPREDNISolone sod succ 125mg/2ml vial IV SCH (08:33)
[2022-01-13] MEDS ORDERED: AMOX-117 PO (10:48)
[2022-01-13] MEDS ORDERED: PRED10TA23 PO (10:48)
[2022-01-13 12:20] VITALS: BP 140/84
[2022-01-13] MEDS ORDERED: NORMAL SALINE IV SCH (16:00)
[2022-01-13] MEDS ORDERED: VANCOMYCIN IV SCH (16:00)
== END 2022-01-13 14:20 | disposition home or self-care (01) | DRG 353 ==
LOC: PAS 10:15 → SUR 3N 16:00 → OBSVTOIN 01-06 04:57 → ICU 2S 01-06 05:09 → SUR 3N 01-06 11:30
PROVIDERS: ADMIT Surgery; ATTEND Surgery
PROC: 0WUF4JZ Supplement Abdominal Wall with Synthetic Substitute, Percutaneous Endoscopic Approach (ICD-10-PCS; principal; 2022-01-05 12:25)
PROC: 5A0935A Assistance with Respiratory Ventilation, Less than 24 Consecutive Hours, High Flow/Velocity Cannula (ICD-10-PCS; 2022-01-06)
PROC: B24BZZZ Ultrasonography of Heart with Aorta (ICD-10-PCS; 2022-01-06)
PROC: B24BZZZ Ultrasonography of Heart with Aorta (ICD-10-PCS; 2022-01-06)
PROC: 5A0945A Assistance with Respiratory Ventilation, 24-96 Consecutive Hours, High Flow/Velocity Cannula (ICD-10-PCS; 2022-01-07)
PROC: B32T1ZZ Computerized Tomography (CT Scan) of Left Pulmonary Artery using Low Osmolar Contrast (ICD-10-PCS; 2022-01-08)
PROC: B3201ZZ Computerized Tomography (CT Scan) of Thoracic Aorta using Low Osmolar Contrast (ICD-10-PCS; 2022-01-08)
PROC: B32S1ZZ Computerized Tomography (CT Scan) of Right Pulmonary Artery using Low Osmolar Contrast (ICD-10-PCS; 2022-01-08)
PROC: 5A0935A Assistance with Respiratory Ventilation, Less than 24 Consecutive Hours, High Flow/Velocity Cannula (ICD-10-PCS; 2022-01-11)
DX: K46.9 Unspecified abdominal hernia without obstruction or gangrene (principal); J96.01 Acute respiratory failure with hypoxia; J69.0 Pneumonitis due to inhalation of food and vomit; J96.02 Acute respiratory failure with hypercapnia; Z68.41 Body mass index [BMI] 40.0-44.9, adult; K56.7 Ileus, unspecified; Z20.822 Contact with and (suspected) exposure to COVID-19; K58.9 Irritable bowel syndrome, unspecified; M62.08 Separation of muscle (nontraumatic), other site; G47.30 Sleep apnea, unspecified; J45.909 Unspecified asthma, uncomplicated; M79.7 Fibromyalgia; E66.01 Morbid (severe) obesity due to excess calories; Z15.09 Genetic susceptibility to other malignant neoplasm; Z80.0 Family history of malignant neoplasm of digestive organs; Z85.038 Personal history of other malignant neoplasm of large intestine; Z85.42 Personal history of malignant neoplasm of other parts of uterus; Z87.891 Personal history of nicotine dependence; Z90.710 Acquired absence of both cervix and uterus; Z90.49 Acquired absence of other specified parts of digestive tract; Z88.8 Allergy status to other drugs, medicaments and biological substances; Z79.899 Other long term (current) drug therapy
CPT/HCPCS: 36415; 36600; 71045; 71275; 80048; 80053; 80202; 81001; 82803; 82948; 83036; 83735; 84100; 84145; 85018; 85025; 85610; 85730; 86140; 86885; 86900; 86901; 87081; 87635; 93005; 93306; 94640; 94667; 94760; 97110; 97161; 97530; 97535; A4215; A4618; A7000; C1781; G0378; J0360; J0690; J1100; J1170; J1650; J1885; J2250; J2270; J2405; J2543; J2704; J2765; J2930; J3010; J3370; J3490; J7030; J7040; J7060; J7120; Q9967; S0020; U0003; U0005